=== PATIENT | female | born 1975 | race Caucasian/White ===

== ENCOUNTER → 2025-04-24 | Outpatient (CLI) | payer MEDICAID, SELFPAY ==
--- NOTE | 2025-04-24 10:16 | XR_ITS ---
Examination: Lumbar spine 3 views Technique one AP lateral coned lateral lower lumbar spine 3 views Date and time: April 24, 2025 1103 hours INDICATIONS: Low back pain several years. FINDINGS: Grade 1 anterolisthesis L4 on L5 No lumbar fracture Diffuse [id number] lumbar degenerative disc disease Moderate lumbar spondylosis IMPRESSION: Diffuse [id number] lumbar degenerative disc disease
== END | disposition home or self-care (01) ==
PROVIDERS: PCP Nurse Practitioner Family; Referring Provider Nurse Practitioner Family; Visit Provider Nurse Practitioner Family
DX: M51.369 Other intervertebral disc degeneration, lumbar region without mention of lumbar back pain or lower extremity pain (principal); M47.816 Spondylosis without myelopathy or radiculopathy, lumbar region
CPT/HCPCS: 72100